=== PATIENT | male | born 1950 | race African-American/Black ===

== ENCOUNTER → 2017-09-05 | Emergency (ER) | payer OTHER ==
[~2017-09-05] VITALS: Ht 162.6 cm; Wt 91.2 kg
[~2017-09-05] MED LIST: HUMALOG100 UNIT/1; ILEVRO1.7 ML
== END | disposition home or self-care (01) ==
LOC: ER 11:00
DX: G89.11 Acute pain due to trauma (principal); R07.89 Other chest pain; R10.32 Left lower quadrant pain; R10.31 Right lower quadrant pain

== ENCOUNTER 2019-09-06 15:41 | Inpatient (IN) | payer OTHER ==
[~2019-09-06] VITALS: Ht 162.6 cm; Wt 69.9 kg
[2019-09-06] MEDS ORDERED: LANTUS SOL100 UNIT/1 ×2 (16:30→16:32)
[2019-09-06] MEDS ORDERED: HUMALOG100 UNIT/1 (16:31)
[2019-09-06] MEDS ORDERED: LASIX40 MG (16:33)
[2019-09-06] MEDS ORDERED: [UNRECOGNIZED DRUG - OTHER] (16:33)
--- NOTE | 2019-09-06 16:34 | NUR ---
SE RECIBE PACIENTE ALERTA Y ORIENTADO REFIERE TENER FATIGA DOLOR EN ABDOMEN, SE OBSERVA ABDOMEN DISTENDIDO Y AMBAS PIERNA Y JAROCHO CON EDEMA. PACIENTE REFIERE VENIR DE DIALIS INIDCA NO PUDO TERMINAR DIALIS POR QUE TENIA DEBILIDAD MAREO Y FALTA DE AIRE. INIDCA SPRING 1HORA Y MEDIA DE DIALIS Y LO ENVIAN A LA ANDRÉS DE EMERGENCIA. PACIENTE REFIERE TENER CANCER DE HIGADO. SE LE REALIZA EKG Y SE PRESENTA A DR. MEDRANO EL CUAL INDICA SE ACOMODA PACIENTE EN AREA DE CHEST PAIN. SE HUBICA PACIENTE EN AGNES Y SE CONECTA A MONITOR CARDIACO.
--- NOTE | 2019-09-06 17:00 | NUR ---
PTE ES EVALUADO POR DR. MEDRANO QUIEN ORDENA TRATAMIENTO. SE EDUCA A PTE Y FAMILIAR SOBRE ORDENES MEDICAS Y REFIEREN COMPRENDER. SE CANALIZA A PTE Y SE COLECTAN MUESTRAS DE LABORATORIO BAJO MEDIDAS ASEPTICAS. SE MANTIENE BAJO OBSERVACION POR CAMBIOS EN CONDICION. SE PROVEE ENVASE PARA COLECTA DE ORINA, PENDIENTE A ENTREGAR.
== END 2019-09-08 17:16 | disposition home or self-care (01) | DRG 291 ==
LOC: ER 15:41 → MEDI 20:45 → MEDJ 09-08 07:34
PROVIDERS: ADMIT Internal Medicine
PROC: 4A12X4Z Monitoring of Cardiac Electrical Activity, External Approach (ICD-10-PCS; 2019-09-06)
PROC: 0W9G3ZX Drainage of Peritoneal Cavity, Percutaneous Approach, Diagnostic (ICD-10-PCS; principal; 2019-09-07)
DX: I13.2 Hypertensive heart and chronic kidney disease with heart failure and with stage 5 chronic kidney disease, or end stage renal disease (principal); N18.6 End stage renal disease; R18.8 Other ascites; C78.7 Secondary malignant neoplasm of liver and intrahepatic bile duct; N17.9 Acute kidney failure, unspecified; E11.22 Type 2 diabetes mellitus with diabetic chronic kidney disease; I50.9 Heart failure, unspecified; Z99.2 Dependence on renal dialysis; Z79.4 Long term (current) use of insulin; Z53.29 Procedure and treatment not carried out because of patient's decision for other reasons